=== PATIENT | female | born 1990 | race Caucasian/White ===

== ENCOUNTER 2020-11-20 12:26 | Emergency (ER) | payer OTHER ==
[~2020-11-20] VITALS: Ht 175.3 cm; Wt 90.7 kg
[2020-11-20 13:53] LABS: URINE BLOOD 3+ (Negative); URINE COLOR YELLOW; URINE GLUCOSE-RANDOM* NEGATIVE (Negative); URINE KETONES NEGATIVE (Negative); URINE LEUKOCYTES-REFLEX NEGATIVE (Negative); URINE NITRITE-REFLEX NEGATIVE (Negative); URINE PROTEIN (DIPSTICK) 2+ (Negative); URINE SPECIFIC GRAVITY 1.025 (1.005-1.035)
[2020-11-20 13:57] LABS: ICTOTEST (BILI CONFIRMATORY) Negative (Negative); URINE BILIRUBIN NEGATIVE (Negative); URINE CLARITY SL HAZY
[2020-11-20 14:01] LABS: BACTERIA-REFLEX >30 Many /HPF (None Seen); CASTS None Seen /LPF (None Seen); CRYSTALS None Seen /LPF (None Seen); SQUAMOUS 4-10 Moderate /LPF (0-3); URINE RBC >20 Many /HPF (NONE SEEN); URINE WBC-REFLEX 0-5 Rare /HPF (0-5)
[2020-11-20] MEDS ORDERED: ZPAK PO (14:13)
[2020-11-20] MEDS ORDERED: MEDROLDOSEPACK PO (14:13)
[2020-11-20] MEDS ORDERED: PROAIR HFA8.5 GM INH (14:14)
[2020-11-20 15:47] VITALS: BP 100/64
== END 2020-11-20 15:48 | disposition home or self-care (01) ==
LOC: ER 12:26
PROVIDERS: Nurse Practitioner
DX: U07.1 COVID-19 (principal); J18.2 Hypostatic pneumonia, unspecified organism; R06.02 Shortness of breath